=== PATIENT | female | born 1985 | race Caucasian/White ===

== ENCOUNTER 2018-02-11 09:48 | Inpatient (IN) | payer BC ==
[2018-02-12] MEDS ORDERED: NS / Oxytocin 40 units/1000ml 1,000 ML IV PRN (21:46)
[2018-02-12] MEDS ORDERED: Promethazine HCl 25 MG/ML VIAL IM PRN (21:46)
[2018-02-12] MEDS ORDERED: Ondansetron HCl/PF 4 MG/2 ML Vial IVP PRN (21:46)
[2018-02-12] MEDS ORDERED: Butorphanol Tartrate 1 MG/ML VIAL SLOW IVP PRN (21:46)
[2018-02-12] MEDS ORDERED: Lidocaine 1% (PF) 30 ML VIAL SC PRN (21:46)
[2018-02-12] MEDS ORDERED: Misoprostol 200 MCG TAB PR PRN (21:46)
[2018-02-12] MEDS ORDERED: Carboprost 250 MCG/ML AMP IM PRN (21:46)
[2018-02-12] MEDS ORDERED: Ibuprofen 800 MG TAB PO PRN (21:46)
[2018-02-12] MEDS ORDERED: NS w/ Oxytocin 10 units 500 ML IV SCH (22:00)
[2018-02-13 15:49] VITALS: BMI 37.4
[2018-02-13] MEDS: Lactated Ringer's 1,000 ML IV SCH ×2 (16:30→19:18)
[2018-02-13 16:35] LABS: Hemoglobin 12.8 g/dL (12.0-16.0); Mean Corpuscular HGB CONC 35.4 g/dL (32.0-36.0); Mean Corpuscular Hemoglobin 31.9 pg (27.0-31.0); Mean Corpuscular Volume 90.2 fL (78.0-98.0); Mean Platelet Volume 8.5 fL (7.4-10.4); Platelet Count 161 thou/uL (130-400); RBC Distribution Width 12.4 % (11.5-14.5); Red Blood Cell (RBC) Count 4.02 mill/uL (4.20-5.40); White Blood Cell (WBC) Count 8.8 thou/uL (4.8-10.8)
[2018-02-13] MEDS ORDERED: Promethazine HCl 25 MG/ML VIAL IM PRN (17:01)
[2018-02-13] MEDS ORDERED: Ondansetron HCl/PF 4 MG/2 ML Vial IVP PRN (17:01)
[2018-02-13 17:12] LABS: HBSAg Index 0.17 S/CO (0-0.99); Hep B Surf Ag Non-Reactive S/CO (NonReactive); Syphilis Antibody Nonreactive (Nonreactive); Syphilis Antibody Index 0.05 S/CO (<1.00 Non-Reactive)
[2018-02-13] MEDS ORDERED: Bupivacaine/Epinephrine 0.25% 30 ML VIAL ONE (17:24)
[2018-02-13] MEDS ORDERED: DISCONTINUE ALL PREVIOUS NARCOTICS FS SCH (17:30)
[2018-02-13] MEDS ORDERED: Bupivacaine 0.5% 20 ML, fentaNYL Citrate/PF 400 MCG in Sodium Chloride 0.9% 72 ML EPIDURAL SCH (17:30)
[2018-02-13] MEDS ORDERED: traMADol HCl 50 MG TAB PO PRN (22:38)
[2018-02-13] MEDS ORDERED: Milk Of Magnesia 30 ML UDCUP PO PRN (22:38)
[2018-02-13] MEDS ORDERED: Bisacodyl 10 MG SUPP PR PRN (22:38)
[2018-02-13] MEDS ORDERED: Preparation H Ointment 28 GM TUBE PR PRN (22:38)
[2018-02-13] MEDS ORDERED: Benzocaine/Menthol 20-0.5% 60 ML CAN TOP PRN (22:38)
--- NOTE | 2018-02-13 22:43 | PDOC.OPDEL ---
OB Operative/Delivery Note Delivery Dr/Surgeon: Donnie Pre-Delivery Diagnosis: elective induction Procedure/Post Delivery Dx: spontaneous vaginal delivery Weeks gestation: 40 Anesthesia: epidural - Findings A Sex: male - 1 min: 9 - 5 min: 9 - Additional Findings/Plan Placenta delivered: spontaneous Repaired Obstetrical Laceration: 2nd degree Estimated blood loss: QBL 268ml Post delivery plan: routine recovery
[2018-02-13] MEDS ORDERED: NS / Oxytocin 40 units/1000ml 1,000 ML IV SCH (22:45)
--- NOTE | 2018-02-14 08:08 | PDOC.PP ---
Post Progress Note Post Day #: 1 PO intake tolerated: yes Flatus: yes Ambulation: yes Vital Signs (12 hours) Temp Pulse Resp BP 02/14/18 05:40 97.7 F 61 16 117/63 02/14/18 02:15 98.1 F 95 16 119/67 02/14/18 01:20 98.1 F 97 16 123/71 Weight Weight 218 lb - Physical Examination General: NAD Cardiovascular: no m/r/g, RRR Respiratory: clear to auscultation bilaterally Abdominal: + bowel sounds, lochia, no distention Extremities: negative homans (B) Neurological: no gross focal deficits Psychiatric: normal affect Result Diagrams: 02/13/18 16:27 Additional Labs: Post Labs Blood Type O NEGATIVE 02/13/18 16:27 Hep Bs Antigen Non-Reactive S/CO (NonReactive) 02/13/18 16:27 - Assessment/Plan ppd #1 doing well. home on 02/15
[2018-02-14] MEDS ORDERED: Adacel (T-DAP) 0.5 ML VIAL IM ONE (09:00)
[2018-02-14] MEDS: Prenatal Vitamin 1 TAB PO SCH (09:08)
[2018-02-14] MEDS: Ibuprofen 800 MG TAB PO SCH ×2 (09:08→17:18)
[2018-02-14] MEDS: Docusate Calcium (SURFAK) 240 MG CAP PO SCH ×2 (09:08→21:19)
[2018-02-14] MEDS: Ferrous Sulfate 325 MG TAB PO SCH ×2 (09:09→17:18)
[2018-02-14] MEDS: Acetaminophen 325 MG TAB PO PRN ×2 (15:20→23:05)
[2018-02-15] MEDS: Ibuprofen 800 MG TAB PO SCH ×2 (01:07→08:21)
--- NOTE | 2018-02-15 01:50 | PDOC.PP ---
Post Progress Note Post Day #: 2 Subjective: Doing well, no complaints PO intake tolerated: yes Flatus: yes Ambulation: yes Vital Signs (12 hours) Temp Pulse Resp BP BP Pulse Ox 02/14/18 23:05 97.8 F 86 20 116/74 96 02/14/18 20:02 98.1 F 82 20 120/77 99 02/14/18 17:10 98.4 F 73 18 108/57 L 95 Weight Weight 218 lb - Physical Examination General: NAD Cardiovascular: no m/r/g Respiratory: clear to auscultation bilaterally Abdominal: + bowel sounds, lochia, no distention, appropriately TTP Extremities: negative homans (B) Neurological: no gross focal deficits Psychiatric: A&Ox3, normal affect Result Diagrams: 02/13/18 16:27 Additional Labs: Post Labs Blood Type O NEGATIVE 02/13/18 16:27 Hep Bs Antigen Non-Reactive S/CO (NonReactive) 02/13/18 16:27 (1) Vaginal delivery Code(s): O80 - ENCOUNTER FOR FULL-TERM UNCOMPLICATED DELIVERY Status: Acute - Assessment/Plan PPD 2 doing well s/p . I evaluated the patient at bedside.Patient cleared for AM discharge. No acute concerns. I have written for motrin. Usual PP follow up.
[2018-02-15 07:40] VITALS: BP 108/59; TEMP 97.7
[2018-02-15] MEDS: Docusate Calcium (SURFAK) 240 MG CAP PO SCH (08:21)
[2018-02-15] MEDS: Prenatal Vitamin 1 TAB PO SCH (08:21)
[2018-02-15] MEDS: Ferrous Sulfate 325 MG TAB PO SCH (08:22)
== END 2018-02-15 13:30 | disposition home or self-care (01) | DRG 775 ==
LOC: L&D 02-13 15:03 → 3SW 02-14 01:18
PROVIDERS: ADMIT Obstetrics & Gynecology; ATTEND Obstetrics & Gynecology
PROC: 0KQM0ZZ Repair Perineum Muscle, Open Approach (ICD-10-PCS; principal; 2018-02-13)
PROC: 10E0XZZ Delivery of Products of Conception, External Approach (ICD-10-PCS; 2018-02-13)
PROC: 10907ZC Drainage of Amniotic Fluid, Therapeutic from Products of Conception, Via Natural or Artificial Opening (ICD-10-PCS; 2018-02-13)
PROC: 3E0S3BZ Introduction of Anesthetic Agent into Epidural Space, Percutaneous Approach (ICD-10-PCS; 2018-02-13)
PROC: 00HU33Z Insertion of Infusion Device into Spinal Canal, Percutaneous Approach (ICD-10-PCS; 2018-02-13)
DX: O70.1 Second degree perineal laceration during delivery (principal); Z37.0 Single live birth; Z3A.40 40 weeks gestation of pregnancy
CPT/HCPCS: 36415; 51702; 85027; 85461; 86780; 86850; 86900; 86901; 87340; 90384; 96372; J2001; J3010; J3490; J7050